=== PATIENT | male | born 2005 | race Caucasian/White ===

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

== ENCOUNTER 2024-05-26 01:37 | Emergency (ER) | payer OTHER ==
[~2024-05-26] VITALS: Ht 195.6 cm; Wt 200.0 kg
[~2024-05-26 01:37] MED LIST changes: +AMPHETAMINE SAL15 MG PO
[2024-05-26] MEDS ORDERED: ONDANSETRON ODT8 MG PO (02:04)
[2024-05-26 02:14] VITALS: BP 132/88
[2024-05-26] MEDS ORDERED: ONDANSETRON 4 MG HOME.PACK SL ONE (02:15)
[2024-05-26 02:25] LABS: INFLUENZA B NAA NEGATIVE (NEGATIVE); RESPIRATORY SYNCYTIAL VIR NAA NEGATIVE (NEGATIVE)
== END 2024-05-26 02:14 | disposition home or self-care (01) ==
LOC: ED 01:37
PROVIDERS: Emergency Medicine
DX: B34.9 Viral infection, unspecified (principal); F17.200 Nicotine dependence, unspecified, uncomplicated; E66.01 Morbid (severe) obesity due to excess calories; Z79.899 Other long term (current) drug therapy
CPT/HCPCS: 87502; 99284; A9270; U0002

== ENCOUNTER 2025-04-26 20:31 | Emergency (ER) | payer OTHER ==
[~2025-04-26] VITALS: Ht 195.6 cm; Wt 207.0 kg
[~2025-04-26 20:31] MED LIST changes: +ONDANSETRON ODT8 MG PO
[2025-04-26] MEDS ORDERED: TRAMADOL HCL 50 MG TAB PO ONE (20:45)
[2025-04-26] MEDS ORDERED: DIPHTH,PERTUSS(ACELL),TET VAC 0.5 ML SYRINGE IM ONE (20:45)
[2025-04-26] MEDS ORDERED: TRAMADOL HCL 50 MG HOME.PACK PO ONE (21:45)
[2025-04-26 22:00] VITALS: BP 129/77
== END 2025-04-26 22:03 | disposition home or self-care (01) ==
LOC: ED 20:31
DX: S93.401A Sprain of unspecified ligament of right ankle, initial encounter (principal); W17.81XA Fall down embankment (hill), initial encounter; F17.200 Nicotine dependence, unspecified, uncomplicated
CPT/HCPCS: 73610; 90471; 90715; 99283-25; A9270